=== PATIENT | male | born 1990 | race American Indian/Alaskan Native ===

== ENCOUNTER 2018-07-12 13:05 | Emergency (ER) | payer BC, OTHER ==
[2018-07-12 13:05] VITALS: BMI 36.5
--- NOTE | 2018-07-12 13:47 | ED PDOC ---
HPI: CCC, URI, Sore Throat Time Seen by Provider: 07/12/18 13:30 Chief Complaint (Nursing): GI Problem History Per: Patient (Derek is here because of cough, fever and bodyaches starting 2 evenings ago. He did not take the flu vaccine because he is afraid of it. He denies past medical problems.) Past Medical History Reviewed: Historical Data, Nursing Documentation, Vital Signs Vital Signs: Last Vital Signs Temp 100 F H 07/12/18 13:16 Pulse 124 H 07/12/18 13:16 Resp 18 07/12/18 13:16 BP 126/64 07/12/18 13:16 Pulse Ox 98 07/12/18 13:16 - Medical History PMH: No Chronic Diseases - Family History Family History: States: Unknown Family Hx - Living Arrangements Living Arrangements: With Family - Immunization History Hx Tetanus Toxoid Vaccination: No Hx Influenza Vaccination: No Hx Pneumococcal Vaccination: No - Home Medications Home Medications: Ambulatory Orders Medication Instructions Recorded Amoxicillin/Clavulanate [Augmentin 1 tab PO BID #14 tab 01/24/18 875 MG-125 MG] Ibuprofen [Motrin Tab] 600 mg PO Q8 #30 tab 01/24/18 Acetaminophen [Tylenol 325mg tab] 650 mg PO Q6 #30 tab 06/14/18 Ondansetron ODT [Zofran ODT] 4 mg PO TID #12 odt 06/14/18 Oseltamivir Phosphate [Tamiflu] 75 mg PO BID #10 capsule 07/12/18 - Allergies Allergies/Adverse Reactions: Allergies Allergy/AdvReac Type Severity Reaction Status Date / Time No Known Allergies Allergy Verified 07/12/18 13:15 Review of Systems ROS Statement: Except As Marked, All Systems Reviewed And Found Negative Constitutional: Positive for: Fever, Chills Respiratory: Positive for: Cough. Negative for: Shortness of Breath Musculoskeletal: Positive for: Back Pain Neurological: Positive for: Weakness Physical Exam - Reviewed Nursing Documentation Reviewed: Yes Vital Signs Reviewed: Yes - Physical Exam Appears: Positive for: Well, Non-toxic, No Acute Distress Head Exam: Positive for: ATRAUMATIC, NORMAL INSPECTION, NORMOCEPHALIC Skin: Positive for: Normal Color, Warm, DRY Eye Exam: Positive for: Normal appearance ENT: Positive for: Pharyngeal Erythema Neck: Positive for: Normal Cardiovascular/Chest: Positive for: Regular Rate, Rhythm Respiratory: Positive for: CNT, Normal Breath Sounds Gastrointestinal/Abdominal: Positive for: Normal Exam, Soft Back: Positive for: Normal Inspection Extremity: Positive for: Normal ROM Neurologic/Psych: Positive for: Alert, Oriented - ECG O2 Sat by Pulse Oximetry: 98 Disposition - Clinical Impression Clinical Impression: Influenza A - Patient ED Disposition Is Patient to be Admitted: No Doctor Will See Patient In The: Office Counseled Patient/Family Regarding: Diagnosis, Need For Followup, Rx Given - Disposition Disposition: Routine/Home Disposition Time: 14:52 Condition: STABLE Prescriptions: Oseltamivir Phosphate [Tamiflu] 75 mg PO BID #10 capsule Instructions: Flu, Adult (DC) Forms: [employer] ([place]), [facility] ED School/Work Excuse - POA Present On Arrival: None
[2018-07-12 15:13] VITALS: BP 128/74; PULSE 82; RESP 16; TEMP 98.8; O2SAT 99
== END 2018-07-12 15:13 | disposition home or self-care (01) ==
LOC: H.ER 13:05
DX: J09.X2 Influenza due to identified novel influenza A virus with other respiratory manifestations (principal)